=== PATIENT | female | born 1935 | race Caucasian/White ===

== ENCOUNTER 2017-04-27 07:21 | Inpatient (IN) | payer MEDICARE ==
--- NOTE | 2017-04-16 10:47 | HP ---
HISTORY AND PHYSICAL: DATE OF ADMISSION/SURGERY: 04/27/17 SURGEON: Chelsea Rousseau MD * (DICTATD BY RICHARD JARRETT) PROCEDURE: Left total knee arthroplasty. CHIEF COMPLAINT: Left knee pain. HISTORY OF PRESENT ILLNESS: Ms. Navarrete is an 81-year-old female with end- stage osteoarthritis of her left knee. She has failed conservative management, and elected to proceed with a left total knee arthroplasty which is scheduled for 04/27/[address] Rousseau. PAST MEDICAL HISTORY: 1. Diverticulitis. 2. Hypertension. 3. History of breast cancer. PAST SURGICAL HISTORY: 1. Partial thyroidectomy. 2. Tonsillectomy. CURRENT MEDICATIONS: 1. Anastrozole 1 mg daily. 2. Irbesartan 150 mg daily. 3. Chlorthalidone 25 mg half tablet daily. ALLERGIES: NITROFURANTOIN. FAMILY HISTORY: Hypertension, osteoarthritis, diabetes and cancer. SOCIAL HISTORY: She is an 81-year-old female. She lives with her . She does not smoke or use drugs. Uses occasional alcohol. REVIEW OF SYSTEMS: A complete 14-point review of systems is reviewed with the patient, it was all negative or noncontributory. PHYSICAL EXAMINATION GENERAL: She is well developed, well nourished, in no acute distress. VITAL SIGNS: She stands 5 feet tall, weighs 150 pounds. Her blood pressure is 138/62, heart rate 73. HEENT: Normocephalic, atraumatic. NECK: Supple. No palpable lymph nodes. PULMONARY: The lungs are clear to auscultation bilaterally. CARDIOVASCULAR: Regular rate and rhythm. Strong S1, S2. ABDOMEN: Soft, nontender, and nondistended. NEUROLOGIC: She is alert and oriented x3. Cranial nerves II through XII are intact. MUSCULOSKELETAL: Left lower extremity, the skin is intact. She has no open wounds or abrasions. She has a moderate joint effusion, 5 to 125 degrees range of motion with patellofemoral crepitus, tenderness over the medial and lateral joint line. 2+ dorsalis pedis pulses. She has intact sensation in her lower extremities. Muscle groups strengths are intact at 5/5. ASSESSMENT AND PLAN: Ms. Navarrete is an 81-year-old female with end-stage osteoarthritis of the left knee. She has failed conservative management and elected to proceed with a left total knee arthroplasty, which is scheduled for 04/27/[address] Rousseau discussed the risks and benefits of the surgery on today's visit and all of her questions were answered. Coumadin, Percocet and Colace were sent to her pharmacy for postoperative pain control and DVT prophylaxis. She will see Dr. Rousseau back 2 weeks after the surgery. RICHARD JARRETT [id number]/[facility] #: [id number] MTDD
[~2017-04-27 07:21] MED LIST: Buffered Lidocaine 0.9% SYRIN* 5 ML/SYR SYRINGE INTRADERM ONE; Bupivacaine 0.5% SDV PF* 30 ML VIAL ONE; Dexamethasone IV* 4 MG/ML 1 ML (4 MG) IV SLOW PU ONE; Famotidine IV* 10 MG/ML 2 ML (20 mg) IV ONE; KETAMINE HCL* 50 MG/ML 10 ML VIAL ONE; Midazolam* 1 MG/ML 10 ML VIAL (10 MG) ONE; Morphine PF AMP (0.5MG/ML)* 5 MG/10 ML AMP ONE; Ondansetron INJ* 2 MG/ML VIAL ONE; Phenylephrine INJ* 10 MG/ML 1 ML VIAL (10 MG) ONE; Propofol* 10 MG/ML 20 ML BTL IV PUSH ONE
[2017-04-27] MEDS ORDERED: Dexamethasone IV* 4 MG/ML 1 ML (4 MG) ONE (07:26)
[2017-04-27] MEDS ORDERED: Famotidine IV* 10 MG/ML 2 ML (20 mg) ONE (07:26)
[2017-04-27] MEDS ORDERED: ceFAZolin 2 GM PREMIX (*) 2 GM/50 ML BAG IVPB ONE (07:27)
[2017-04-27] MEDS ORDERED: Scopolamine PATCH Remove* 1 NOTE MISC PATCH OFF PRN (09:40)
[2017-04-27] MEDS ORDERED: Ondansetron INJ* 2 MG/ML VIAL IV PRN (09:40)
[2017-04-27] MEDS ORDERED: DiMENhydriNATE IV* 50 MG/ML VIAL IV PUSH PRN (09:40)
[2017-04-27] MEDS ORDERED: Scopolamine 1.5 mg* PATCH TRANSDERM PRN (09:40)
[2017-04-27] MEDS ORDERED: fentaNYL* 50 MCG/ML 2 ML VIAL (100 MCG VIAL) IV PRN (09:40)
[2017-04-27] MEDS ORDERED: Nalbuphine* 20 MG/ML 1 ML VIAL IV PRN ×2 (09:40)
[2017-04-27] MEDS ORDERED: Naloxone* 0.4 MG/ML 1 ML VIAL IV PRN (09:40)
[2017-04-27] MEDS ORDERED: HYDROmorphone INJ* 1 MG/ML CARPUJECT SYRINGE IV PRN (09:40)
[2017-04-27] MEDS ORDERED: oxyCODONE/Acetamin 5/325 MG* TAB PO PRN (09:40)
--- NOTE | 2017-04-27 12:11 | RAD ---
Indication: Left total knee replacement. 2 views of left knee demonstrates bipolar knee arthroplasty in satisfactory position. No loosening is noted. IMPRESSION: Bilateral left knee arthroplasty in satisfactory position.
[2017-04-27] MEDS ORDERED: Scopolamine 1.5 mg* PATCH ONE (12:14)
[2017-04-27] MEDS ORDERED: Nalbuphine* 20 MG/ML 1 ML VIAL ONE (12:24)
[2017-04-27] MEDS ORDERED: Ondansetron INJ* 2 MG/ML VIAL ONE (12:50)
[2017-04-27] MEDS ORDERED: DiMENhydriNATE IV* 50 MG/ML VIAL ONE (13:12)
[2017-04-27] MEDS: Magnesium Hydroxide LIQ* 30 ML UDC PO SCH ×2 (16:47→17:33)
[2017-04-27] MEDS ORDERED: Warfarin TAB(*) 6 MG PO ONE (17:00)
[2017-04-27] MEDS: ceFAZolin 1 GM VIAL(*) 1 GM in D5W 50 ML BAG* 50 ML IVPB SCH (17:33)
[2017-04-27] MEDS: oxyCODONE/Acetamin 5/325 MG* TAB PO PRN ×2 (17:33→21:57)
[2017-04-27] MEDS: Docusate CAP* 100 MG PO SCH (21:57)
[2017-04-28] MEDS ORDERED: oxyCODONE TAB* 5 MG TAB PO PRN (01:00)
[2017-04-28] MEDS ORDERED: Ondansetron INJ* 2 MG/ML VIAL IV PRN (01:00)
[2017-04-28] MEDS ORDERED: diPHENhydraMINE PO* 25 MG PO PRN (01:00)
[2017-04-28] MEDS ORDERED: Morphine INJ* 4 MG/ML 1 ML CARPUJECT IV PRN (01:00)
[2017-04-28] MEDS ORDERED: oxyCODONE/Acetamin 5/325 MG* TAB PO PRN (01:00)
[2017-04-28] MEDS: oxyCODONE/Acetamin 5/325 MG* TAB PO PRN ×5 (02:40→23:13)
[2017-04-28] MEDS: ceFAZolin 1 GM VIAL(*) 1 GM in D5W 50 ML BAG* 50 ML IVPB SCH ×2 (02:43→10:27)
[2017-04-28] MEDS: Magnesium Hydroxide LIQ* 30 ML UDC PO SCH ×5 (02:46→23:16)
--- NOTE | 2017-04-28 04:53 | OP ---
OPERATIVE REPORT: DATE OF OPERATION: 04/27/17 DATE OF : 33 ATTENDING SURGEON: Chelsea Rousseau MD CANVASSING MANAGER: RICHARD Borja Mr. He did help throughout the procedure with preparation of the leg, wound retraction, manipulat ion of the knee, and wound closure. ANESTHESIOLOGIST: Dr. Chau. ANESTHESIA: Spinal. PRE-OP DIAGNOSIS: Severe end-stage degenerative osteoarthritis of the left knee joint. POST-OP DIAGNOSIS: Severe end-stage degenerative osteoarthritis of the left knee joint. OPERATIVE PROCEDURE: Left total knee arthroplasty. COMPLICATIONS: None. TOURNIQUET TIME: 45 minutes. SPECIMENS: Bone and cartilage from the left knee joint sent to Pathology. ESTIMATED BLOOD LOSS: 200 cc. HARDWARE USED: This is cemented [employer] total knee hardware. For the cement, two packages of Simplex bone cement. For the femur, a size 3 left posterior stabilized Legion femoral component. For the tibia, size 3 Doris II left tibial baseplate. For the insert, an 11-mm posterior stabiliz ed articular insert size 3-4 and for the patella, a 29-mm 7.5 thickness 3-peg all poly patella. BRIEF HISTORY/INDICATIONS: Ms. Navarrete is an 82-year-old female with years of increasingly severe left knee pain. Radiographs showed [id number] arthritis. She failed conservative treatment with an ti-inflammatories, pain medication, intraarticular injection and physical therapy. Due to continued pain and decreased quality of life, she elected to undergo left total knee arthroplasty. Informed co nsent was obtained from the patient. She understood the risks of surgery, included but were not limi jeanmarie to bleeding, infection, damage to nearby structures, continued pain, need for further surgery, in traoperative fracture, nerve palsy, hardware failure or loosening, knee stiffness, loss of motion, st roke, heart attack, blood clot, and . She wished to proceed. INTRAOPERATIVE FINDINGS: Intraoperatively, the patient was noted to have osteopenia throughout the c ase. She had tricompartmental full thickness cartilage loss. DESCRIPTION OF PROCEDURE: Ms. Navarrete was identified in the preanesthesia unit. Her left lower ext remity was marked as the correct operative side. Informed consent was signed and placed in the chart . The patient was taken to the operating room and placed under spinal anesthesia. A Martinez catheter was placed. Tourniquet was placed on the left thigh. Left lower extremity was prepped and draped in the usual sterile fashion. Preop time-out was made to correctly identify the patient's side and sit e. Appropriate perioperative antibiotics were given within 1 hour of incision. Tourniquet was inflated until the tourniquet time for this procedure was 45 minutes. A 12-cm midline incision was made with a 10 blade and carried down to the extensor mechanism. New 10 blade was used to make a standard medial parapatellar arthrotomy. The patella was subluxed laterally. Electrocaut jesus was used to subperiosteally elevate the soft tissue off the superomedial tibia to the mid sagitta l plane. The knee was flexed up. The anterior horn of the lateral meniscus and ACL were sharply rel eased. A drill was used to enter the distal femur. Intramedullary distal femoral cutting guide was p inned on the distal femur. Oscillating saw was used to make the distal femoral cut. External rotatio n guide was pinned on the distal femur and the distal femur was sized to a size 3. Size 3 multi-cutt ing jig was pinned on the distal femur. Oscillating saw was used to make the appropriate 4 chamfer c uts. The PCL was completely released. The tibia was subluxed anteriorly. Extramedullary tibial cut ting guide was pinned on the proximal tibia. The oscillating saw was used to make a proximal tibial cut perpendicular to the mechanical axis of the tibia. The bone was carefully removed. The knee was brought out into extension. Spacer block had good fit in full extension. Medial and la teral ligaments were well balanced. The flexion and extension gaps were well balanced. The knee was flexed up. Lamina manager of hospital was placed both medially and laterally. Any remaining meniscus was care fully removed using electrocautery. Any posterior osteophytes were removed with a curette and curved osteotome. Tibial tray and drop bailey were placed to once again confirmed a satisfactory tibial cut. This was confirmed. A size 3 left femoral trial was impacted on to the distal femur and had good fi t. The box for the posterior stabilized implant was prepared using a reamer and box-cut osteotome. A trial size 3 tibial tray with an 11-mm insert trial was placed and the knee was taken through a ran ge of motion. The knee had full extension to 130 degrees of flexion with satisfactory patellofemoral tracking. The patella was everted. A 7-mm of patellar bone and cartilage was carefully removed from the patell a. The patella was sized to a size 29. The 3-peg holes were drilled through the size 29 guide. A 2 9, 7.5 thickness patella was placed, the knee was taken through a range of motion. There was satisfa ctory patellofemoral tracking. All trials were carefully removed. The tibia was subluxed anteriorly and sized to a size 3. Proximal tibia was prepared using a keel punch. All bony cut surfaces were copiously irrigated with sterile saline and dried. Final implants were cemented into place starting with the tibia, followed by the femur and last the p atella. An 11-mm insert trial was placed and the knee was brought out into full extension. Tourniqu et was turned down at 45 minutes. The cement was allowed to fully cure. The knee was copiously irri gated with sterile saline. Electrocautery was used to obtain meticulous hemostasis. Once the cement had fully cured, the insert trial was removed. Any excess cement was removed from around the capsul e and hardware. Final insert chosen was an 11-mm posterior stabilized articular insert Doris II, s ize 3-4. This was locked into position on the tibial tray without difficulty. Stability of the inse rt was checked and rechecked and noted to be stable. The extensor mechanism was closed using interrupted #1 Vicryls over a medium Hemovac drain. The rest of the incision was closed in a layered fashion using 0 and 2-0 Vicryls. Skin was closed using runn ing 3-0 nylon suture. Sterile Xeroform, 4x4s, and Webril were used to cover the incision. Munir wrap and cold pack were placed over this. The patient's anesthesia was reversed without difficulty. She w as taken to the PACU in stable condition. Intended weightbearing will be weightbearing as tolerated. Intended DVT prophylaxis will be Coumadin with a Lovenox bridge. [id number]/[facility] #: [id number]
[2017-04-28 06:04] LABS: Comments Flag Yes; Hematocrit 31 % (35-47); Hemoglobin 10.4 g/dl (12.0-16.0); Mean Platelet Volume 9 um3 (7.4-10.4)
[2017-04-28 06:16] LABS: BUN/Creatinine Ratio 22.6 (8-20); Calcium 8.8 mg/dL (8.6-10.3); EGFR African American 83.3 (>60); EGFR Non-African American 64.8 (>60); Potassium 4.1 mmol/L (3.5-5.0)
[2017-04-28] MEDS: Losartan TAB* 25 MG PO SCH (09:22)
[2017-04-28] MEDS: Chlorthalidone TAB* 50 MG PO SCH (09:23)
[2017-04-28] MEDS: Docusate CAP* 100 MG PO SCH ×2 (09:24→20:09)
[2017-04-28] MEDS: CMC:Anastrozole (NF) 1 MG TAB PO SCH (09:26)
--- NOTE | 2017-04-28 10:05 | PN ---
Progress Note - Progress Note Date of Service: 04/28/17 SOAP: Subjective: Pt. is alert, nad. Objective: LLE - drain removed, tip intact. dressing c/d/i. distally nvi. Vital Signs: Temp Pulse Resp BP Pulse Ox 97.6 F 66 16 153/54 100 04/28/17 07:45 04/28/17 07:45 04/28/17 09:24 04/28/17 07:45 04/28/17 07:45 Laboratory Results - last 24 hr 04/28/17 04/28/17 04/28/17 05:52 05:52 05:52 Hgb 10.4 L Hct 31 L Plt Count 214 MPV 9 INR (Anticoag Therapy) 0.89 Sodium 131 L Potassium 4.1 Chloride 95 L Carbon Dioxide 28 Anion Gap 8 BUN 19 Creatinine 0.84 Est GFR ( Amer) 83.3 Est GFR (Non-Af Amer) 64.8 BUN/Creatinine Ratio 22.6 H Glucose 142 H Calcium 8.8 Assessment: 82 yo F pod 1 s/p LTKA Plan: wbat pt/ot 6 mg coumadin tonight, lovenox today d/c plan lio vs pmru
[2017-04-28] MEDS: Enoxaparin(*) 30 MG/0.3 ML SYR SUBCUT SCH (12:27)
[2017-04-28] MEDS ORDERED: Warfarin TAB(*) 4 MG PO ONE (17:00)
[2017-04-29] MEDS: Losartan TAB* 25 MG PO SCH (04:49)
[2017-04-29] MEDS: oxyCODONE/Acetamin 5/325 MG* TAB PO PRN (04:50)
[2017-04-29] MEDS: Magnesium Hydroxide LIQ* 30 ML UDC PO SCH ×3 (05:00→13:26)
[2017-04-29] MEDS ORDERED: hydrALAZINE TAB* 10 MG PO ONE (05:00)
[2017-04-29] MEDS ORDERED: Losartan TAB* 25 MG PO ONE (05:00)
[2017-04-29 06:26] LABS: Hematocrit 28 % (35-47); Hemoglobin 9.8 g/dl (12.0-16.0); Mean Platelet Volume 9 um3 (7.4-10.4)
--- NOTE | 2017-04-29 08:30 | PN ---
Progress Note - Progress Note Date of Service: 04/29/17 SOAP: Subjective: POD #2 Left TKA. Doing well. Denies significant pain in knee, concerned about need for frequent trips to the bathroom. Was hoping to go to rehab unit at [facility] but told there were no beds available. Denies CP/SOB, f/c. Was hypertensive early this morning and Losartan dose given early this morning. Objective: Vitals: Temp Pulse Resp BP Pulse Ox 98.2 F 86 16 167/55 100 04/29/17 07:15 04/29/17 07:15 04/29/17 07:59 04/29/17 07:15 04/29/17 07:15 Gen: A&O x3, NAD at rest sitting in bed LLE: Incision C/D/I, mild edema. No erythema. +f/e at ankle and MTPs, N/V intact Labs: Laboratory Results - last 24 hr 04/29/17 04/29/17 06:13 06:13 Hgb 9.8 L Hct 28 L Plt Count 192 MPV 9 INR (Anticoag Therapy) 1.19 H Assessment: POD #2 Left TKA. Doing well Plan: [facility], will put in PMRU referral for acute rehab INR 1.19 will give Coumadin 8mg tonight Cont PT/OT
[2017-04-29] MEDS: CMC:Anastrozole (NF) 1 MG TAB PO SCH (08:44)
[2017-04-29] MEDS: Acetaminophen TAB* 325 MG PO PRN ×2 (08:45→13:31)
[2017-04-29] MEDS: Chlorthalidone TAB* 50 MG PO SCH (08:46)
[2017-04-29] MEDS: Docusate CAP* 100 MG PO SCH ×2 (08:47→20:06)
[2017-04-29] MEDS: Enoxaparin(*) 30 MG/0.3 ML SYR SUBCUT SCH (13:32)
[2017-04-29] MEDS ORDERED: Warfarin TAB(*) 4 MG PO ONE (17:00)
[2017-04-29] MEDS ORDERED: hydrALAZINE IV* 20 MG/ML VIAL IV PRN (22:24)
[2017-04-30] MEDS: Acetaminophen TAB* 325 MG PO PRN ×2 (01:14→14:08)
[2017-04-30 05:59] LABS: Hematocrit 27 % (35-47); Hemoglobin 9.2 g/dl (12.0-16.0); Mean Platelet Volume 9 um3 (7.4-10.4)
[2017-04-30 06:04] LABS: Comments Flag Yes
[2017-04-30] MEDS: Docusate CAP* 100 MG PO SCH (08:47)
[2017-04-30] MEDS: Chlorthalidone TAB* 50 MG PO SCH (08:52)
[2017-04-30] MEDS: CMC:Anastrozole (NF) 1 MG TAB PO SCH (08:52)
[2017-04-30] MEDS ORDERED: Losartan TAB* 25 MG PO SCH (09:00)
--- NOTE | 2017-04-30 11:46 | PN ---
Progress Note - Progress Note Date of Service: 04/30/17 SOAP: Subjective: 82 y/o female s/p L TKA by Dr. Rousseau 04/30/2017. Patient reports feeling well, mild nausea with decreased appetite, pain under control. VSS, elevated BP overnight. afebrile. Objective: General- well appearing, NAD, AO, sitting in chair comfortably MSK- L LE Dressing removed, incision c/d/i, small amount of erythema at proximal portion, redressing without complication, neg homans, DF/PF intact, sensation grossly intact. Laboratory Results - last 24 hr 04/30/17 04/30/17 05:50 05:50 Hgb 9.2 L Hct 27 L Plt Count 200 MPV 9 INR (Anticoag Therapy) 1.93 H Vital Signs Temp 98.9 F 04/30/17 07:26 Pulse 83 04/30/17 07:26 Resp 16 04/30/17 07:34 BP 152/61 04/30/17 07:26 Pulse Ox 96 04/30/17 07:34 Intake & Output 04/29/17 04/30/17 04/30/17 18:59 06:59 18:59 Intake Total 1784 330 460 Output Total 1600 2200 500 Balance 184 -1870 -40 Intake: Oral 1784 330 460 Output: Urine 1600 2200 500 Other: # Bowel Movements 1 Estimated Stool Amount Large Medium Assessment: 82 y/o female s/p L TKA by Dr. Rousseau 04/30/2017. Plan: - DVT prophylaxis- 1.93 INR, continue coumadin - Continue PT/ OT - D/C to [facility] at [facility] today - Follow up with Dr. Rousseau within 10 days for incision check and suture removal. - intermittent HTN- Follow up with [facility] and resident physician for management Active Medications Generic Name Dose Route Start Last Admin Trade Name Freq PRN Reason Stop Dose Admin Acetaminophen 650 mg 04/27/17 11:32 04/30/17 01:14 Tylenol Tab* PO 650 mg Q4H PRN Administration PAIN OR TEMPERATURE Anastrozole 1 mg 04/28/17 09:00 04/30/17 08:52 Arimidex (Nf) PO 1 mg QAM CIARA Administration Chlorthalidone 12.5 mg 04/28/17 09:00 04/30/17 08:52 Hygroton Tab* PO 12.5 mg QAM CIARA Administration Diphenhydramine HCl 25 mg 04/28/17 01:00 Benadryl Po* PO Q6H PRN itching or insomnia Docusate Sodium 100 mg 04/27/17 21:00 04/30/17 08:47 Colace Cap* PO Not Given BID CIARA Enoxaparin Sodium 30 mg 04/28/17 12:00 04/29/17 13:32 Lovenox(*) SUBCUT 30 mg Q24H CIARA Administration Hydralazine HCl 10 mg 04/29/17 22:24 04/30/17 00:38 Apresoline Iv* IV 10 mg Q4H PRN Administration Systolic >170 Lactated Ringer's 1,000 mls @ 75 mls/hr 04/27/17 12:00 04/28/17 05:32 Lactated Ringers 1000 Ml Bag* IV 75 mls/hr PER RATE CIARA Administration Lactulose 30 ml 04/27/17 11:32 Lactulose* PO Q6H PRN constipation Losartan Potassium 50 mg 04/30/17 09:00 04/30/17 08:50 Cozaar Tab* PO 50 mg DAILY CIARA Administration Morphine Sulfate 4 mg 04/28/17 01:00 Morphine Inj (Syringe)* IV Q2H PRN PAIN - BREAKTHROUGH Ondansetron HCl 4 mg 04/28/17 01:00 Zofran Inj* IV Q6H PRN nausea Oxycodone HCl 10 mg 04/28/17 01:00 Roxycodone Tab* PO Q4H PRN PAIN - SEVERE Oxycodone/Acetaminophen 1 tab 04/28/17 01:00 04/29/17 04:50 Percocet 5/325 Tab* PO 1 tab Q4H PRN Administration PAIN Oxycodone/Acetaminophen 2 tab 04/28/17 01:00 Percocet 5/325 Tab* PO Q4H PRN PAIN - MODERATE Pharmacy Profile Note 1 note 04/27/17 17:00 04/29/17 18:02 Coumadin Daily Reminder* FOLLOW UP 1 note 1700 CIARA Administration Scopolamine 1 patch 04/27/17 09:40 04/27/17 12:15 Transderm-Scop 1.5 Mg Patch* TRANSDERM 1 patch Q72H PRN Administration nausea
[2017-04-30] MEDS: Enoxaparin(*) 30 MG/0.3 ML SYR SUBCUT SCH (12:28)
--- NOTE | 2017-04-30 13:33 | DS ---
DISCHARGE SUMMARY: DATE OF ADMISSION: 04/27/17 DATE OF DISCHARGE: 04/30/17 ATTENDING PHYSICIAN: Dr. Rousseau * (DICTATED BY RICHARD BRENNAN) CHIEF COMPLAINT: 1. Left knee pain. 2. Diverticulitis. 3. Hypertension. 4. History of breast cancer. DISCHARGE DIAGNOSES: 1. Status post left total knee arthroplasty. 2. Diverticulitis. 3. Hypertension. 4. History of breast cancer. PROCEDURE: Left total knee arthroplasty. BRIEF HISTORY: Mrs. Navarrete is a very pleasant 82-year-old female with end- stage osteoarthritis of her left knee, who failed conservative treatment and elected to undergo a left total knee arthroplasty with Dr. Rousseau on 04/27/17. HOSPITAL COURSE: The patient was admitted to [facility] [place] on 04/27/17 , where she underwent an uncomplicated left total knee arthroplasty. Postoperatively, she surgical short stay unit. On postoperative day #1, her Martinez was removed and she was voiding at her own without difficulty. She was advanced to a regular diet; however, continued to have a poor appetite and her pain was controlled with p.o. Percocet. She was discharged on her home medications. Her labs and vital signs remained stable. She did have several episodes of hypertension and was written for p.r.n. hydralazine 10 mg IV q.4 hours which she received 1 dose at 12:30 a.m. on 04/30/17. She progressed well with physical therapy and was able to bear weight as tolerated in her left lower extremity. Her DVT prophylaxis was managed with Lovenox and Coumadin until she reached a therapeutic INR. By postoperative day #3, she was orthopedically and medically stable for discharge to go home with home services. PHYSICAL EXAMINATION: General Appearance: Well appearing, in no acute distress , alert and oriented, sitting in chair comfortably. Vital Signs: On date of discharge include temperature of 98.9, pulse 83, respirations 16, blood pressure 162/61 and pulse oxygenation of 96% on room air. The left lower extremity dressing was removed from the knee. The incision was clean, dry, and intact. There was a mild amount of erythema located at the proximal portion of the incision. No drainage noted. The area was re-dressed without difficulty. There is negative Homans sign, positive plantar flexion and dorsiflexion and sensation is grossly intact to the left lower extremity. Posterior tibial pulses of 2+. LABORATORY DATA: On date of discharge, H and H of 9.2 and 27 with an INR of 1.93. DISCHARGE MEDICATIONS: 1. Arimidex 1 mg p.o. q.a.m. 2. Hygroton 12.5 mg p.o. q.a.m. 3. Colace 100 mg p.o. b.i.d. 4. Avapro 150 mg p.o. q.a.m. 5. Percocet 5/325 one-half to two tablets every 4 to 6 hours as needed for pain. 6. Scopolamine patch 1 patch transdermally q.72 hours as needed for nausea. 7. Coumadin 2 mg tablet daily at 5 p.m. per physician's instructions. CONDITION ON DISCHARGE: Stable. DISCHARGE INSTRUCTIONS: Mrs. Navarrete is a very pleasant 82-year-old female postoperative day #3 status post left total knee arthroplasty which was uncomplicated. She is orthopedically and medically stable for discharge to go home with her discharge to go to the [facility]. Her vital signs and labs are stable. She will start her home medications. She will take 2 mg of Coumadin tonight, 4 mg on the , and 2 mg on the with an INR check on 05/03/17. She will continue to be weightbearing as tolerated in the left lower extremity and will have physical therapy at [facility]. She will take Percocet as needed for pain control and Colace up to 3 times a day for constipation. She will follow up with Dr. Rousseau in approximately 10 days for incision check and suture removal. She is instructed to go immediately to the ER should she develop chest pain or shortness of breath. Should she develop fever, increasing pain or redness, she needs to call the office immediately. Her blood pressures will be monitored closely as she did have several episodes of hypertension while in house. RICHARD BRENNAN [id number]/[facility] #: [id number] MTDLeighton
[2017-04-30 16:51] VITALS: BP 157/58
== END 2017-04-30 16:50 | disposition home health service (06) | DRG 470 ==
LOC: AA 07:21 → SSU 14:31
PROVIDERS: ADMIT Orthopaedic Surgery Adult Reconstructive Orthopaedic Surgery; ATTEND Orthopaedic Surgery Adult Reconstructive Orthopaedic Surgery
PROC: 0SRD0J9 Replacement of Left Knee Joint with Synthetic Substitute, Cemented, Open Approach (ICD-10-PCS; principal; 2017-04-27 08:45)
DX: M17.12 Unilateral primary osteoarthritis, left knee (principal); K57.92 Diverticulitis of intestine, part unspecified, without perforation or abscess without bleeding; I10 Essential (primary) hypertension; M85.862 Other specified disorders of bone density and structure, left lower leg; Z85.3 Personal history of malignant neoplasm of breast; Z79.01 Long term (current) use of anticoagulants; Z88.8 Allergy status to other drugs, medicaments and biological substances; Z82.49 Family history of ischemic heart disease and other diseases of the circulatory system; Z83.3 Family history of diabetes mellitus; Z80.9 Family history of malignant neoplasm, unspecified; Z82.61 Family history of arthritis; R11.0 Nausea
CPT/HCPCS: 36415; 80048; 85014; 85018; 85049; 85610; 88305; 88311; A9270-GY; C1776; J0360; J0690; J1100; J1240; J1650; J2250; J2300; J2405; J2704